=== PATIENT | male | born 1965 | race Caucasian/White ===

== ENCOUNTER 2020-03-29 13:46 | Emergency (ER) | payer MEDICAID ==
[~2020-03-29] VITALS: Ht 185.4 cm; Wt 68.0 kg
[2020-03-29 13:56] VITALS: BP 121/70
--- NOTE | 2020-03-29 14:06 | NUR ---
ED Nurse Note: Patient from home and walked in due to flu like symptoms with N/V, bodyaches, coughing, headache. Patient also reports weakness. 99.2 F in triage. Patient is AAO x4, ambulatory with non labored breathing.
--- NOTE | 2020-03-29 14:20 | Emergency Room Report ---
History of Present Illness General Chief Complaint: Flu Like Symptoms Source: Patient Present Illness HPI 55-year-old male with no past medical history presents today complaining of feverish symptoms, chills, body aches, mild SOB, loss of taste, and smell for 2 days. Location total body, severity moderate, quality aches and chills, timing 2 days ago. Patient has not tried any medication to feel better, see above for associated signs and symptoms, he denies any shortness of breath chest pain or diarrhea. PMH: [Denies] PSH: [Denies] Smoking: [Denies] Ethanol: [Denies] Drug: [Denies] Allergies: Coded Allergies: No Known Allergies (Unverified , 03/29/20) COVID-19 Screening Contact w/high risk pt: No Experienced COVID-19 symptoms?: Yes COVID-19 Testing performed [employer] AD[employer]ER: Yes COVID-19 Screening: Negative COVID-19 COVID-19 Testing Source: unk Nursing Documentation-PMH Past Medical History: No Stated History Review of Systems Narrative Review of systems: CONST: + fevers or chills, +body aches, No night sweats EYES: No eye pain, vision change, eye discharge HEAD/EARS/NOSE/THROAT: No earache, sore throat, or nasal discharge. PULMONARY: + SOB, no cough, no wheezing CARDIAC: No chest pain, No palpitations, no leg swelling GI: No abdominal pain, no vomiting, no diarrhea , no melena or BRBPR : No flank pain, no dysuria, no hematuria, no frequency. MUSCULOSKELETAL: No back pain, no neck pain, no leg pain SKIN: No rash, no itching, no bruising NEUROLOGICAL: No headache, no dizziness, no paresthesia , no focal weakness. 14 point Review of Systems is otherwise negative except per HPI Physical Exam Vital Signs Date Time Temp Pulse Resp B/P (MAP) Pulse Ox O2 Delivery O2 Flow Rate FiO2 03/29/20 13:56 99.1 79 22 121/70 96 Room Air Other Organ Systems Physical Exam: General: Awake and alert, in no acute distress, non-toxic, well appearing Eyes: Conjunctiva clear, no visible conjunctival injection or scleral icterus Neck: No meningismus ENT: Hearing intact, No drooling, Moist mucus membranes Respiratory: No significant respiratory distress, no significant tachypnea, no stridor, able to speak in full sentences, no accessory muscle use, no retractions, no nasal flaring Cardiac: no apparent edema in the lower extremities Abdomen: Does not appear distended, No significant tenderness noted when patient directed to palpate their abdomen Skin: No visible pallor, cyanosis, or diaphoresis MSK: Head appears atraumatic, normocephalic Psychological: Appropriate mood and affect Neurologic: No altered mental status, appropriately conversant and follows commands, appear to move all extremities with normal strength Medical Decision Making PA Attestation Dr. Greenwood Is my supervising Physician whom patient management has been discussed with. Diagnostic Impression: Primary Impression: Suspected 2019 novel coronavirus infection Additional Impression: Pneumonia Qualified Codes: J18.9 - Pneumonia, unspecified organism ER Course MDM: The patient is nontoxic and well-appearing and has no significant shortness of breath or fever. Vital signs are stable. The patient exhibits no evidence of respiratory distress. Chest x-ray revealed evidence of pneumonia therefore we will treat patient with azithromycin at this time. Do not suspect PE at this time, I suspect patient shortness of breath is due to the pneumonia. Pt had no chest pain. No other cardiac risk factors, do not suspect ACS at this time and therefore further workup was deferred. No evidence of ENT emergency, airway patent, tolerating oral liquids and solids. No stridor or difficulty breathing. Pt was tested for COVID today. Patient was nontoxic with benign vital signs. Patient did not meet admission criteria and was stable for outpatient therapy. Patient was instructed to home quarantine until they receives their test result s. If positive they were told to quarantine for 10 days or until 24 hours after their last fever or symptom, whichever is longer. They were told that we would call the number on file if the test is positive and to make sure the number is correct with registration. Appropriate precautions were given. Patient educated to notify a healthcare professional if they develop further symptoms that include chest pain, palpitations, significant SOB, fever, or other concerning symptoms. Explained to patient that it is possible patient may also have influenza however he is out of the 48-hour window to give Tamiflu and therefore no influenza swab was done at this time. Discussed supportive care with rest, hydration, frequent handwashing and Tylenol and Motrin [id number] as needed for pain or fevers. Discussed strict return precautions. Verbal discharge with written instructions were given for COVID-19. Patient is instructed to follow up with their primary care provider in 1-2 days, or return to the ED for worsening symptoms. Return to ED precautions were given. Laboratory Tests Test 03/29/20 14:10 03/29/20 15:45 Urine Color Pale yellow Urine Appearance Clear Urine pH 7 (4.5-8.0) Urine Specific [place] 1.005 (1.005-1.035) Urine Protein 2+ (NEGATIVE) H Urine Glucose (UA) Negative (NEGATIVE) Urine Ketones Negative (NEGATIVE) Urine Blood Negative (NEGATIVE) Urine Nitrite Negative (NEGATIVE) Urine Bilirubin Negative (NEGATIVE) Urine Urobilinogen Normal MG/DL (0.0-1.0) Urine Leukocyte Esterase Negative (NEGATIVE) Urine RBC 0 /HPF (0 - 0) Urine WBC 0 /HPF (0 - 0) Urine Squamous Epithelial Cells None /LPF (NONE/OCC) Urine Bacteria Occasional /HPF (NONE) White Blood Count 4.8 K/UL (4.8-10.8) Red Blood Count 4.83 M/UL (4.70-6.10) Hemoglobin 15.4 G/DL (14.2-18.0) Hematocrit 44.6 % (42.0-52.0) Mean Corpuscular Volume 92 FL (80-99) Mean Corpuscular Hemoglobin 31.9 PG (27.0-31.0) H Mean Corpuscular Hemoglobin Concent 34.6 G/DL (32.0-36.0) Red Cell Distribution Width 13.3 % (11.6-14.8) Platelet Count 148 K/UL (150-450) L Mean Platelet Volume 10.4 FL (6.5-10.1) H Neutrophils (%) (Auto) 68.6 % (45.0-75.0) Lymphocytes (%) (Auto) 20.0 % (20.0-45.0) Monocytes (%) (Auto) 9.9 % (1.0-10.0) Eosinophils (%) (Auto) 0.0 % (0.0-3.0) Basophils (%) (Auto) 1.5 % (0.0-2.0) Sodium Level 129 MMOL/L (136-145) L Potassium Level 4.7 MMOL/L (3.5-5.1) Chloride Level 94 MMOL/L (98-107) L Carbon Dioxide Level 29 MMOL/L (21-32) Anion Gap 6 mmol/L (5-15) Blood Urea Nitrogen 9 mg/dL (7-18) Creatinine 0.9 MG/DL (0.55-1.30) Estimated Glomerular Filtration Rate > 60 mL/min (>60) Glucose Level 101 MG/DL (74-106) Calcium Level 8.5 MG/DL (8.5-10.1) Chest X-Ray Diagnostic Results Chest X-Ray Diagnostic Results : Chest X-Ray Ordered: Yes # of Views/Limited/Complete: 1 View Indication: Shortness of Breath PA Xray: Interpretation reviewed, by supervising MD, and agrees with findings. Impression: Other - Patchy opacities in the lower lungs concerning for infec tious/inflammatory process. Last Vital Signs Date Time Temp Pulse Resp B/P (MAP) Pulse Ox O2 Delivery O2 Flow Rate FiO2 03/29/20 14:06 79 22 Room Air 03/29/20 13:56 99.1 121/70 (87) 96 Disposition: HOME, SELF-CARE Condition: Stable Scripts Acetaminophen* (TYLENOL EXTRA STRENGTH*) 500 Mg Tablet 500 MG ORAL Q6H PRN for fever, #30 TAB 0 Refills Prov: Yelena Lo PA-C 03/29/20 Azithromycin* (ZITHROMAX*) 250 Mg Tablet 250 MG ORAL DAILY, #6 TAB 0 Refills Take two tables once daily for 1 day, then one tablet once daily for 4 days. Prov: Yelena Lo PA-C 03/29/20 Referrals: [facility],REFERRING (PCP) Mouna [facility] Patient Instructions: Community-Acquired Pneumonia, Adult Additional Instructions: You were found to have evidence of pneumonia on your chest xray and will be prescribed antibiotics. Additionally your xray findings are suspicious for COVID-19 and I have high suspicion that you are infected with COVID-19. Increase electrolyte and fluid intake, should drink gatorade. Rest. Take antibiotics as prescribed for pneumonia and tylenol as needed for pain or fevers. You can take 500mg of tylenol every 4-6 hours. Home quarantine until you receive your test results for COVID 19. If you are positive, quarantine for 10 days from the onset of your symptoms or until 24 hours after their last fever or symptom, whichever is longer. Call ER for your test results in 3 days. We will call the number on file if the test is positive however you should still call us to follow up with your results. Follow up with a Primary Care Provider in 1-2 days, even if your symptoms have resolved. Return sooner to ED if new symptoms occur, or current symptoms become worse. - Please note that this Emergency Department Report was dictated using [employer]bias machine operator helper technology software, occasionally this can lead to erroneous entry secondary to interpretation by the dictation equipment. Yelena Lo PA-C Mar 29, 2020 14:20
[2020-03-29] MEDS ORDERED: Acetaminophen 500mg (ES) tab ORAL ONE (14:30)
[2020-03-29 14:50] LABS: APPEARANCE,URINE CLEAR; BILIRUBIN, URINE NEGATIVE (NEGATIVE); COLOR,URINE PALE YELLOW; GLUCOSE, URINE (UA) NEGATIVE (NEGATIVE); KETONES,URINE NEGATIVE (NEGATIVE); LEUKOCYTE ESTERASE ,URINE NEGATIVE (NEGATIVE); NITRITE,URINE NEGATIVE (NEGATIVE); PH,URINE 7 (4.5-8.0); PROTEIN,URINE 2+ (NEGATIVE); UROBILINOGEN,URINE NORMAL MG/DL (0.0-1.0)
--- NOTE | 2020-03-29 15:15 | Diagnostic Imaging Report ---
EXAM: XR Chest, 1 View CLINICAL HISTORY: SOB TECHNIQUE: Frontal view of the chest. COMPARISON: None FINDINGS: Hardware: None. Lungs/pleura: Patchy opacities in the lower lungs. No pleural effusion or pneumothorax. Heart/mediastinum: Normal. No cardiomegaly. Soft tissues: Unremarkable. Bones: No acute fracture. Upper abdomen: Normal. IMPRESSION: Patchy opacities in the lower lungs, concerning for an infectious/inflammatory process.
--- NOTE | 2020-03-29 16:00 | NUR ---
ED Nurse Note: Collected blood and covid19 swab then sent.
[2020-03-29 16:21] LABS: BASOPHILS % (AUTO) 1.5 % (0.0-2.0); HEMATOCRIT 44.6 % (42.0-52.0); HEMOGLOBIN 15.4 G/DL (14.2-18.0); MEAN CORPUSCULAR VOLUME 92 FL (80-99); MONOCYTES % (AUTO) 9.9 % (1.0-10.0); NEUTROPHILS % (AUTO) 68.6 % (45.0-75.0); PLATELET COUNT 148 K/UL (150-450); RED BLOOD COUNT 4.83 M/UL (4.70-6.10); RED CELL DISTRIBUTION WIDTH 13.3 % (11.6-14.8); WHITE BLOOD COUNT 4.8 K/UL (4.8-10.8)
[2020-03-29 16:29] LABS: ANION GAP 6 mmol/L (5-15); BLOOD UREA NITROGEN 9 mg/dL (7-18); CALCIUM 8.5 MG/DL (8.5-10.1); CARBON DIOXIDE 29 MMOL/L (21-32); CHLORIDE 94 MMOL/L (98-107); CREATININE 0.9 MG/DL (0.55-1.30); POTASSIUM 4.7 MMOL/L (3.5-5.1); SODIUM 129 MMOL/L (136-145)
[2020-03-29] MEDS ORDERED: ZITHROMAX250 MG ORAL (16:51)
[2020-03-29] MEDS ORDERED: TYLENOL EXTRA500 MG ORAL (16:51)
[2020-03-29 17:03] VITALS: BP 117/65
--- NOTE | 2020-03-29 17:03 | NUR ---
ER DISCHARGE NOTE: Patient is cleared to be discharged per ERMD, pt is aox4, on room air, with stable vital signs. pt was given dc and prescription instructions, pt was able to verbalize understanding, pt id band and iv site removed without complications. pt is able to ambulate with steady gait. pt took all belongings.
== END 2020-03-29 17:03 | disposition home or self-care (01) ==
LOC: EMR 14:13
DX: Z20.828 Contact with and (suspected) exposure to other viral communicable diseases (principal); J18.9 Pneumonia, unspecified organism
CPT/HCPCS: 36415; 71045; 80048; 81003; 85025; U0004; Z7502; 99284